=== PATIENT | female | born 1955 | race Caucasian/White ===

== ENCOUNTER 2021-10-15 00:17 | Emergency (ER) | payer MEDICARE, SELFPAY ==
[2021-10-15 00:28] VITALS: BP 168/67; PULSE 60; RESP 18; TEMP 36.7; O2SAT 99; BMI 23.3
[2021-10-15 00:30] VITALS: BP 168/67; PULSE 62; RESP 18; TEMP 36.7; O2SAT 99
--- NOTE | 2021-10-15 00:56 | ED.GENADULT ---
HPI - General Adult General Chief complaint: Upper Respiratory Symptoms Stated complaint: Tongue swollen Time Seen by Provider: 10/15/21 00:42 Source: patient Mode of arrival: Ambulatory History of Present Illness HPI narrative: Patient here for complaints of tongue swelling and dry mouth/tongue. Patient states this started around 10:00 p.m. tonight. 3 hours ago. No trouble breathing. No trouble swallowing. Patient speaking full sentences. Patient drinks some green tea that she made at home, it was older supply. Also had zinc. Patient states she had COVID like symptoms last week/Friday. Her son has COVID. She assumed that she had COVID as well. She has lost sense of taste and smell. Otherwise no new products in life. She does not want to take Benadryl because has paradoxical effect on her causing palpitations and feeling very energetic. She does not want to try prednisone as well. Patient speaking full sentences. In no distress. Denies any rash or itching Related Data Allergies Allergy/AdvReac Type Severity Reaction Status Date / Time amoxicillin Allergy Rash Verified 10/15/21 00:44 ciprofloxacin [From Cipro] Allergy Anaphylaxis Verified 10/15/21 00:44 erythromycin base Allergy Verified 10/15/21 00:44 Review of Systems Review of Systems Narrative: GENERAL: Denies chills, fatigue, malaise, fever, sweats. HEENT: Denies sinus pain, ear pain, sore throat, positive for tongue swelling RESPIRATORY: Denies dyspnea, cough CARDIOVASCULAR: Denies chest pain, palpitations GASTROINTESTINAL: Denies nausea, vomiting, abdominal pain : Denies dysuria, frequency, hematuria MUSCULOSKELETAL: denies muscle or bony pain SKIN: Denies rash, skin lesions NEUROLOGIC: Denies weakness, numbness ROS Unobtainable: All systems reviewed & are unremarkable except as noted in HPI and below Patient History Social History Smoking Status: Never smoker Smoking Status: Never smoker alcohol intake frequency: 0-2 drinks per day Substance Use Type: does not use Exam Narrative Exam Narrative: GENERAL: in no distress, not toxic not dyspneic HEAD: Normocephalic. EYES: Pupils equal round No scleral icterus. ENT: Mucous membranes moist. Tongue appears symmetric. No malocclusion or trismus. No tongue elevation. Normal appearing papule on the tongue. No lesions. Clear posterior pharynx without any edema or erythema. NECK: Trachea midline. No stridor CARDIOVASCULAR: Regular rate and rhythm without murmurs RESPIRATORY: Clear to auscultation. Breath sounds equal bilaterally. No wheezes, rales, or rhonchi. Speaking full sentences, no distress NEURO: AOx4. SKIN: Warm and dry PSYCH: Not anxious, is cooperative Initial Vital Signs Initial Vital Signs: Vital Signs Temperature 98.0 F 10/15/21 00:28 Pulse Rate 60 10/15/21 00:28 Respiratory Rate 18 10/15/21 00:28 Blood Pressure 168/67 H 10/15/21 00:28 Pulse Oximetry 99 10/15/21 00:28 Oxygen Delivery Method 10/15/21 00:28 Course Course Course Narrative: No new issues during course of stay Orders Ordered: ED Orders 10/15/21 01:11 COVID19 -Nasal RAPID/Pre-Proc Stat Reevaluation(s) Reevaluation #1: Patient states feeling better. No trouble breathing or swallowing. Patient states time does not feel swollen. She does recall using a Neti potty tonight. She thinks that may have triggered this sensation. Return precautions reviewed with her. Reviewed results with her. She understands there are myriad of symptoms and sequela from COVID. It is still being studied and reviewed. It including COVID tongue, however it is self-limiting. Time: 01:53 Vital Signs Vital signs: Vital Signs - 8 hr 10/15/21 00:30 10/15/21 00:28 Temperature 98.0 F 98.0 F Pulse Rate 62 60 Respiratory Rate 18 18 Blood Pressure 168/67 H Blood Pressure [Right Arm] 168/67 H Pulse Oximetry 99 99 Oxygen Delivery Method Room Air Room Air Medical Decision Making Differential Diagnosis Differential Diagnosis: COVID tongue/glossitis/geographic tongue Lab Data Labs: Lab Results 10/15/21 Range/Units 01:11 SARS-CoV-2 (PCR) Positive H (Negative) MDM Narrative Medical decision making narrative: Appropriate for discharge home. Exam reassuring. Symptoms likely related to COVID. Return precautions reviewed with patient. Not toxic at discharge. Feeling much better at time of discharge. Onset 4 hours ago, no tongue elevation or drooling or airway compromise Discharge Plan Departure Patient Disposition: Home Clinical Impression: COVID-19 Instructions: DI for COVID-19 (Suspected or Confirmed ) Activity Restrictions/Additional Instructions: Keep well hydrated. Return if worsening questions concerns. Must quarantine for 10 days from 1st day of your symptoms. Return if worse if any questions or concerns or for any trouble breathing or swallowing. Call 911 if having any trouble with breathing
[2021-10-15 01:39] LABS: COVID19 -Nasal RAPID POSITIVE (Negative)
[2021-10-15 01:59] VITALS: BP 137/74; PULSE 76; RESP 17; O2SAT 98
== END 2021-10-15 01:56 | disposition home or self-care (01) ==
PROVIDERS: Emergency Provider Emergency Medicine
DX: U07.1 COVID-19 (principal)
CPT/HCPCS: 87635; 99282; C9803

== ENCOUNTER 2023-06-03 15:15 | Outpatient (RCR) | payer MEDICARE, OTHER, SELFPAY ==
--- NOTE | 2023-05-07 17:03 | PT.OIE ---
Current Diagnoses Uterovaginal prolapse, unspecified (05/07/23) Pelvic muscle wasting (05/07/23) Visit Care Team Role Provider Type Stephan Camarena MD Family Provider Non-Staff Primary Care Provider Specialty: Internal Medicine Address: [address] [place] [address], [id number] Email: JAXSON Dyson Attending Provider Non-Staff Referring Provider Specialty: Family Practice Address: [address] [place] [address], [id number] Email: Physical Therapy Initial Evaluation PT-OP-A Visit Information Start: 05/07/23 08:10 Freq: Status: Active Protocol: Document 05/07/23 08:10 [facility] (Rec: 05/07/23 08:34 [facility] [id number]) Out-Patient Physical Therapy Visit Information Visit Information Visit Type Initial Evaluation Visit Start Time 08:15 Visit Stop Time 09:00 Visit Number 1 Evaluation Information Evaluation Date 05/07/23 PT-OP-B Current Condition Start: 05/07/23 08:10 Freq: Status: Active Protocol: Document 05/07/23 08:10 [facility] (Rec: 05/07/23 08:34 [facility] [id number]) Current Condition History of Current Condition Onset Date December 2022 Current Complaints urinary urgency History of Current Condition 67 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 In December she started noting hesitancy with voiding. She reports she is not a good water drinker. She drinks coffee in the am and then drinks 3 cups of hot tea per day. At [place] time she drove down to [facility] she was sitting in the car driving and that night she felt like she had a UTI. She was prescriped a antibiotic. It seemed to help some and then she drove to [facility] and symptoms worsened again. Then around New Years she felt the symptoms again of a infection. She was prescribed another antibiotic. She then went in for a test and it was negative for a UTI. She saw dr [place] and was given a pessary and estrogen cream for the past 3 weeks. The pessary does give her relief. She is taking it out 1 time every 2-3 days. She exercises every day. 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 She is mindful of her back . Arielle reports she lost her 3 years ago so she has not to the lifting on her own. No complaints of urinary leakage. Prior Treatments and Tests hx of 3 vaginal deliveries PT-OP-I Pelvic Floor Start: 05/07/23 08:10 Freq: Status: Active Protocol: Document 05/07/23 08:15 [facility] (Rec: 05/07/23 12:58 [facility] [id number]) Pelvic Floor Assessment Urine Pelvic Floor Surgery No Urinary Symptoms Incomplete Emptying,Falling Out Feeling/Heavy Other Urinary Symptoms decreased c/o urinary symptoms at this time as pt is now using a pessary, she was feeling incomplete emptying and bladder pressure prior to using the pessary, without the pessary those symptoms return . Arielle does note that it is easier for her to fully void in the am Pelvic Clock Pelvic Clock 12-3 Atrophy Pelvic Clock 3-6 Atrophy Pelvic Clock 6-9 Atrophy Pelvic Clock 9-12 Atrophy Prolapse Cystocele Grade 2 Prolapse Comments grade 2 vaginal vault prolapse Contraction Ability Voluntary Contraction Weak Voluntary Relaxation Weak Manual Muscle Testing Left 2 Manual Muscle Testing Right 2 Manual Muscle Testing Anterior 1 Manual Muscle Testing Posterior 2 Muscle Endurance (Seconds) 5 Comments Pelvic Floor Comments She is weakest in the anterior pelvic floor and lateral lopez PT-OP-Q Treatments Start: 05/07/23 08:10 Freq: Status: Active Protocol: Document 05/07/23 08:15 [facility] (Rec: 05/07/23 12:54 [facility] [id number]) Therapeutic Exercises Supine Exercises supine pelvic floor with bridge Reps/Minutes 3 x 10 reps pelvic floor long holds Reps/Minutes 10 reps holding 10 seconds and relaxing 10 seconds Comments with emg biofeedback average is 11.2 and max 52 PT-OP-T Assessment and Plan Start: 05/07/23 08:10 Freq: Status: Active Protocol: Document 05/07/23 08:10 [facility] (Rec: 05/07/23 08:34 [facility] [id number]) Physical Therapy Assessment Rehab Potential Rehabilitation Potential Excellent Evaluation Complexity Number of Personal Factors/Comorbidities 0 Number of Body Systems Impaired 1-2 Clinical Presentation at Evaluation Stable Impairments Impairments Activity Tolerance,Functional Activities,Pain,Soft Tissue Mobility,Strength Goals 2 Impairment Decreased pelvic floor endurance Short Term Goal (STG) Arielle is able to sustain a pelvic floor muscle contraction for 10 seconds in supine STG Duration 5 weeks Family Services Specialist Goal (LTG) Arielle is able to sustain a pelvic floor contraction for 5 seconds in standing LTG Duration 12 weeks 1 Impairment Decreased pelvic floor strength Short Term Goal (STG) Arielle is educated on a HEP for pelvic floor strengtheing STG Duration 5 weeks Family Services Specialist Goal (LTG) Arielle is able to increase her pelvic floor strength by at least 1 muscle grade for all lopez of her pelvic floor LTG Duration 12 weeks Assessment Summary Assessment Arielle is a 67 year old active female who presents to PT for pelvic floor strengthening due to vaginal vault prolapse as well as a cystocele. Arielle reports her symptoms began in December [address]. She described feeling as if she had a UTI. She was given antibiotics on two occasions to treat her symptoms. With further testing she was found to not have a UTI but presented with a vaginal vault prolapse and cystocele. Arielle was fit for a pessary and was given estrogen cream. She is feeling like both of these interventions are helping. With the pessary in she is not feeling the pelvic pressure she was experiencing . SHe does not that she has a slower urinary stream at the end of the day even with wearing the pessary. Arielle denies any urinary leakage. With pelvic floor exam Arielle presents with atrophic vaginal tissue weakness throughout her levator ani. She tests 1/5 MMT for the anterior wall, 2/5 MMT for lateral lopez, and 3/ 5 MMT for posterior wall. She lacks endurance of her pelvic floor. Arielle is a good candidate for pelvic floor PT working on improving strength and endurance of the pelvic floor to better support her pelvic organs. She lives alone at this time as she lost her 3 years ago. Pt notes she is very active in her yard and property and does do a lot of lifting. Treatment will also focus on body mechanics training for lifting to decrease downward strain to the bladder and vaginal lopez. Physical Therapy Plan Frequency and Duration Frequency of Treatment 1x/Week Duration of treatment (weeks) 12 Plan of Care Start Date 05/07/23 Plan of Care End Date 07/30/23 Therapeutic Interventions Therapeutic Interventions Home Exercise Program, Neuromuscular Re-education, Self-Care/Home Management, Therapeutic Exercises Modalities Biofeedback Next Visit Focus/Plan Next Note Type Treatment Note Next Visit Plan EMG biofeedback for endurance training of the pelvic floor, lateral hip strengthening exercises to help support the pelvic floor and pelvic organs , educated pt on using a wedge for pelvic decompression
--- NOTE | 2023-05-07 17:04 | PT.OPPOC ---
Physical, Occupational & Speech Therapy At [facility] Current Diagnoses Uterovaginal prolapse, unspecified (05/07/23) Pelvic muscle wasting (05/07/23) Visit Care Team Role Provider Type Stephan Camarena MD Family Provider Non-Staff Primary Care Provider Specialty: Internal Medicine Address: [address] [place] [address], [address] Email: JAXSON Dyson Attending Provider Non-Staff Referring Provider Specialty: Family Practice Address: [address] [place] [address], [id number] Email: Plan Of Care PT-OP-T Assessment and Plan Start: 05/07/23 08:10 Freq: Status: Active Protocol: Document 05/07/23 08:10 [facility] (Rec: 05/07/23 08:34 [facility] [id number]) Physical Therapy Assessment Rehab Potential Rehabilitation Potential Excellent Evaluation Complexity Number of Personal Factors/Comorbidities 0 Number of Body Systems Impaired 1-2 Clinical Presentation at Evaluation Stable Impairments Impairments Activity Tolerance,Functional Activities,Pain,Soft Tissue Mobility,Strength Goals 2 Impairment Decreased pelvic floor endurance Short Term Goal (STG) Arielle is able to sustain a pelvic floor muscle contraction for 10 seconds in supine STG Duration 5 weeks Half-Way Goal (LTG) Arielle is able to sustain a pelvic floor contraction for 5 seconds in standing LTG Duration 12 weeks 1 Impairment Decreased pelvic floor strength Short Term Goal (STG) Arielle is educated on a HEP for pelvic floor strengthening STG Duration 5 weeks Half-Way Goal (LTG) Arielle is able to increase her pelvic floor strength by at least 1 muscle grade for all lopez of her pelvic floor LTG Duration 12 weeks Assessment Summary Assessment Arielle is a 67 year old active female who presents to PT for pelvic floor strengthening due to vaginal vault prolapse as well as a cystocele. Arielle reports her symptoms began in December [address] drive. She described feeling as if she had a UTI. She was given antibiotics on two occasions to treat her symptoms. With further testing she was found to not have a UTI but presented with a vaginal vault prolapse and cystocele. Arielle was fit for a pessary and was given estrogen cream. She is feeling like both of these interventions are helping. With the pessary in she is not feeling the pelvic pressure she was experiencing . SHe does not that she has a slower urinary stream at the end of the day even with wearing the pessary. Arielle denies any urinary leakage. With pelvic floor exam Arielle presents with atrophic vaginal tissue weakness throughout her levator ani. She tests 1/5 MMT for the anterior wall, 2/5 MMT for lateral lopez, and 3/ 5 MMT for posterior wall. She lacks endurance of her pelvic floor. Arielle is a good candidate for pelvic floor PT working on improveing strength and endurance of the pelvic floor to better support her pelvic organs. She lives alone at this time as she lost her 3 years ago. Pt notes she is very active in her yard and property and does do a lot of lifting. Treatment will also focus on body mechanics training for lifting to decrease downward strain to the bladder and vaginal lopez. Physical Therapy Plan Frequency and Duration Frequency of Treatment 1x/Week Duration of treatment (weeks) 12 Plan of Care Start Date 05/07/23 Plan of Care End Date 07/30/23 Therapeutic Interventions Therapeutic Interventions Home Exercise Program, Neuromuscular Re-education, Self-Care/Home Management, Therapeutic Exercises Modalities Biofeedback Next Visit Focus/Plan Next Note Type Treatment Note Next Visit Plan EMG biofeedback for endurance training of the pelvic floor, lateral hip strengthening exercises to help support the pelvic floor and pelvic organs , educated pt on using a wedge for pelvic decompression Plan of Care Dates Plan of Care Start Date 05/07/23 Plan of Care End Date 07/30/23 Electronically Signed by: Krysten Hinton, PT 05/08/23 3063 If you are in agreement with this Plan of Care, please return a signed and dated copy. I have reviewed this Plan of Care and certify that the skilled therapy services above are required to meet the patient?s needs. Physician Signature Date Printed Name and Credentials Clinical Instructor Signature Printed Name and Credentials
--- NOTE | 2023-05-15 11:35 | PT.OTN ---
Current Diagnoses Uterovaginal prolapse, unspecified (05/15/23) Pelvic muscle wasting (05/15/23) Physical Therapy Treatment Note PT-OP-A Visit Information Start: 05/07/23 08:10 Freq: Status: Active Protocol: Document 05/15/23 09:48 [facility] (Rec: 05/15/23 10:31 [facility] [id number]) Out-Patient Physical Therapy Visit Information Visit Information Visit Type Treatment Note Visit Start Time 09:50 Visit Stop Time 10:30 Visit Number 2 PT-OP-B Current Condition Start: 05/07/23 08:10 Freq: Status: Active Protocol: Document 05/07/23 08:10 [facility] (Rec: 05/07/23 08:34 [facility] [id number]) Current Condition History of Current Condition Onset Date December 2022 Current Complaints urinary urgency History of Current Condition 67 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 In December she started noting hesitancy with voiding. She reports she is not a good water drinker. She drinks coffee in the am and then drinks 3 cups of hot tea per day. At [place] time she drove down to [facility] she was sitting in the car driving and that night she felt like she had a UTI. She was prescriped a antibiotic. It seemed to help some and then she drove to [facility] and symptoms worsened again. Then around New Years she felt the symptoms again of a infection. She was prescribed another antibiotic. She then went in for a test and it was negative for a UTI. She saw dr [place] and was given a pessary and estrogen cream for the past 3 weeks. The pessary does give her relief. She is taking it out 1 time every 2-3 days. She exercises every day. 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 She is mindful of her back . Arielle reports she lost her 3 years ago so she has not to the lifting on her own. No complaints of urinary leakage. Prior Treatments and Tests hx of 3 vaginal deliveries PT-OP-C Subjective Start: 05/07/23 08:10 Freq: Status: Active Protocol: Document 05/15/23 09:48 [facility] (Rec: 05/15/23 10:31 [facility] [id number]) OP-PT Subjective Patient Comments Patient Comments pt reports she worked on her exercises at home. She did keep her pessary in with her exercises PT-OP-I Pelvic Floor Start: 05/07/23 08:10 Freq: Status: Active Protocol: Document 05/07/23 08:15 [facility] (Rec: 05/07/23 12:58 [facility] [id number]) Pelvic Floor Assessment Urine Pelvic Floor Surgery No Urinary Symptoms Incomplete Emptying,Falling Out Feeling/Heavy Other Urinary Symptoms decreased c/o urinary symptoms at this time as pt is now using a pessary, she was feeling incomplete emptying and bladder pressure prior to using the pessary, without the pessary those symptoms return . Arielle does note that it is easier for her to fully void in the am Pelvic Clock Pelvic Clock 12-3 Atrophy Pelvic Clock 3-6 Atrophy Pelvic Clock 6-9 Atrophy Pelvic Clock 9-12 Atrophy Prolapse Cystocele Grade 2 Prolapse Comments grade 2 vaginal vault prolapse Contraction Ability Voluntary Contraction Weak Voluntary Relaxation Weak Manual Muscle Testing Left 2 Manual Muscle Testing Right 2 Manual Muscle Testing Anterior 1 Manual Muscle Testing Posterior 2 Muscle Endurance (Seconds) 5 Comments Pelvic Floor Comments She is weakest in the anterior pelvic floor and lateral lopez PT-OP-Q Treatments Start: 05/07/23 08:10 Freq: Status: Active Protocol: Document 05/15/23 09:48 [facility] (Rec: 05/15/23 10:31 [facility] [id number]) Therapeutic Exercises Supine Exercises pelvic floor quick contractions Reps/Minutes x 10 reps 2 sec on 2 sec off hip roll outs Equipment Used level 3 theraband Reps/Minutes 3 x 10 reps supine pelvic floor with bridge Reps/Minutes 3 x 10 reps pelvic floor long holds Reps/Minutes 10 reps holding 10 seconds and relaxing 10 seconds Comments average of 12.4 uv and max 48. 2 PT-OP-T Assessment and Plan Start: 05/07/23 08:10 Freq: Status: Active Protocol: Document 05/15/23 11:32 [facility] (Rec: 05/15/23 11:35 [facility] [id number]) Physical Therapy Assessment Rehab Potential Rehabilitation Potential Excellent Evaluation Complexity Number of Personal Factors/Comorbidities 0 Number of Body Systems Impaired 1-2 Clinical Presentation at Evaluation Stable Impairments Impairments Activity Tolerance,Functional Activities,Pain,Soft Tissue Mobility,Strength Goals 2 Impairment Decreased pelvic floor endurance Short Term Goal (STG) Arielle is able to sustain a pelvic floor muscle contraction for 10 seconds in supine STG Duration 5 weeks Long-Term Goal (LTG) Arielle is able to sustain a pelvic floor contraction for 5 seconds in standing LTG Duration 12 weeks 1 Impairment Decreased pelvic floor strength Short Term Goal (STG) Arielle is educated on a HEP for pelvic floor strengtheing STG Duration 5 weeks Long-Term Goal (LTG) Arielle is able to increase her pelvic floor strength by at least 1 muscle grade for all lopez of her pelvic floor LTG Duration 12 weeks Assessment Summary Assessment Arielle did show improvements with pelvic floor recruitment today on EMG biofeedback. It is difficult for her to sustain a contraction and endurance training will be very beneficial to her. She tolerated the addition of lateral hip strength and quick contractions well today Physical Therapy Plan Frequency and Duration Frequency of Treatment 1x/Week Duration of treatment (weeks) 12 Plan of Care Start Date 05/07/23 Plan of Care End Date 07/30/23 Therapeutic Interventions Therapeutic Interventions Home Exercise Program, Neuromuscular Re-education, Self-Care/Home Management, Therapeutic Exercises Modalities Biofeedback Next Visit Focus/Plan Next Note Type Treatment Note Next Visit Plan EMG biofeedback for endurance training of the pelvic floor, lateral hip strengthening exercises to help support the pelvic floor and pelvic organs , educated pt on using a wedge for pelvic decompression
--- NOTE | 2023-05-29 12:11 | PT.OTN ---
Current Diagnoses Uterovaginal prolapse, unspecified (05/29/23) Pelvic muscle wasting (05/29/23) Physical Therapy Treatment Note PT-OP-A Visit Information Start: 05/07/23 08:10 Freq: Status: Active Protocol: Document 05/29/23 11:20 [facility] (Rec: 05/29/23 12:09 [facility] [id number]) Out-Patient Physical Therapy Visit Information Visit Information Visit Type Treatment Note Visit Start Time 11:20 Visit Stop Time 12:00 Visit Number 3 PT-OP-B Current Condition Start: 05/07/23 08:10 Freq: Status: Active Protocol: Document 05/07/23 08:10 [facility] (Rec: 05/07/23 08:34 [facility] [id number]) Current Condition History of Current Condition Onset Date December 2022 Current Complaints urinary urgency History of Current Condition 67 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 In December she started noting hesitancy with voiding. She reports she is not a good water drinker. She drinks coffee in the am and then drinks 3 cups of hot tea per day. At [place] time she drove down to [facility] she was sitting in the car driving and that night she felt like she had a UTI. She was prescriped a antibiotic. It seemed to help some and then she drove to [facility] and symptoms worsened again. Then around New Years she felt the symptoms again of a infection. She was prescribed another antibiotic. She then went in for a test and it was negative for a UTI. She saw dr [place] and was given a pessary and estrogen cream for the past 3 weeks. The pessary does give her relief. She is taking it out 1 time every 2-3 days. She exercises every day. 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 She is mindful of her back . Arielle reports she lost her 3 years ago so she has not to the lifting on her own. No complaints of urinary leakage. Prior Treatments and Tests hx of 3 vaginal deliveries PT-OP-C Subjective Start: 05/07/23 08:10 Freq: Status: Active Protocol: Document 05/29/23 12:10 [facility] (Rec: 05/29/23 12:11 [facility] [id number]) OP-PT Subjective Patient Comments Patient Comments Arielle notes she can still feel pelvic pressure at times Patient Reported Progress Same PT-OP-I Pelvic Floor Start: 05/07/23 08:10 Freq: Status: Active Protocol: Document 05/07/23 08:15 [facility] (Rec: 05/07/23 12:58 [facility] [id number]) Pelvic Floor Assessment Urine Pelvic Floor Surgery No Urinary Symptoms Incomplete Emptying,Falling Out Feeling/Heavy Other Urinary Symptoms decreased c/o urinary symptoms at this time as pt is now using a pessary, she was feeling incomplete emptying and bladder pressure prior to using the pessary, without the pessary those symptoms return . Arielle does note that it is easier for her to fully void in the am Pelvic Clock Pelvic Clock 12-3 Atrophy Pelvic Clock 3-6 Atrophy Pelvic Clock 6-9 Atrophy Pelvic Clock 9-12 Atrophy Prolapse Cystocele Grade 2 Prolapse Comments grade 2 vaginal vault prolapse Contraction Ability Voluntary Contraction Weak Voluntary Relaxation Weak Manual Muscle Testing Left 2 Manual Muscle Testing Right 2 Manual Muscle Testing Anterior 1 Manual Muscle Testing Posterior 2 Muscle Endurance (Seconds) 5 Comments Pelvic Floor Comments She is weakest in the anterior pelvic floor and lateral lopez PT-OP-Q Treatments Start: 05/07/23 08:10 Freq: Status: Active Protocol: Document 05/29/23 11:20 [facility] (Rec: 05/29/23 12:09 [facility] [id number]) Therapeutic Exercises Supine Exercises templates for eccentric control and coordination Supine Exercise Name with EMG biofeedback Reps/Minutes x 8 min pelvic floor quick contractions Reps/Minutes x 10 reps 2 sec on 2 sec off hip roll outs Reps/Minutes 3x 10 with resistance Comments clam shells supine pelvic floor with bridge Reps/Minutes 3 x 10 reps pelvic floor long holds Reps/Minutes 10 reps holding 10 seconds and relaxing 10 seconds Comments 10.5 average and max of 25.2 Self-Care/Home Management Treatment Education Patient Education Home Exercise Program PT-OP-T Assessment and Plan Start: 05/07/23 08:10 Freq: Status: Active Protocol: Document 05/29/23 11:20 [facility] (Rec: 05/29/23 12:09 [facility] [id number]) Physical Therapy Assessment Goals 2 Impairment Decreased pelvic floor endurance Short Term Goal (STG) Arielle is able to sustain a pelvic floor muscle contraction for 10 seconds in supine STG Duration 5 weeks [employer]board [employer] Room Operator Goal (LTG) Arielle is able to sustain a pelvic floor contraction for 5 seconds in standing LTG Duration 12 weeks 1 Impairment Decreased pelvic floor strength Short Term Goal (STG) Arielle is educated on a HEP for pelvic floor strengtheing STG Duration 5 weeks Switchboard And Control Room Operator Goal (LTG) Arielle is able to increase her pelvic floor strength by at least 1 muscle grade for all lopez of her pelvic floor LTG Duration 12 weeks Assessment Summary Assessment Arielle is showing progress with improved endurance of the pelvic floor, she would benefit from working towards upright strengthening Physical Therapy Plan Frequency and Duration Frequency of Treatment 1x/Week Duration of treatment (weeks) 12 Plan of Care Start Date 05/07/23 Plan of Care End Date 07/30/23 Therapeutic Interventions Therapeutic Interventions Home Exercise Program, Neuromuscular Re-education, Self-Care/Home Management, Therapeutic Exercises Modalities Biofeedback Next Visit Focus/Plan Next Note Type Treatment Note Next Visit Plan EMG biofeedback for endurance training of the pelvic floor, lateral hip strengthening exercises, begin standing pelvic floor ex
--- NOTE | 2023-06-03 16:43 | PT.OTN ---
Current Diagnoses Uterovaginal prolapse, unspecified (06/03/23) Pelvic muscle wasting (06/03/23) Physical Therapy Treatment Note PT-OP-A Visit Information Start: 05/07/23 08:10 Freq: Status: Active Protocol: Document 06/03/23 15:19 [facility] (Rec: 06/03/23 16:13 [facility] [id number]) Out-Patient Physical Therapy Visit Information Visit Information Visit Type Treatment Note Visit Start Time 15:15 Visit Stop Time 16:00 Visit Number 4 PT-OP-B Current Condition Start: 05/07/23 08:10 Freq: Status: Active Protocol: Document 05/07/23 08:10 [facility] (Rec: 05/07/23 08:34 [facility] [id number]) Current Condition History of Current Condition Onset Date December 2022 Current Complaints urinary urgency History of Current Condition 67 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 In December she started noting hesitancy with voiding. She reports she is not a good water drinker. She drinks coffee in the am and then drinks 3 cups of hot tea per day. At [place] time she drove down to [facility] [facility] she was sitting in the car driving and that night she felt like she had a UTI. She was prescriped a antibiotic. It seemed to help some and then she drove to [facility] and symptoms worsened again. Then around New Years she felt the symptoms again of a infection. She was prescribed another antibiotic. She then went in for a test and it was negative for a UTI. She saw dr [place] and was given a pessary and estrogen cream for the past 3 weeks. The pessary does give her relief. She is taking it out 1 time every 2-3 days. She exercises every day. 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 She is mindful of her back . Arielle reports she lost her 3 years ago so she has not to the lifting on her own. No complaints of urinary leakage. Prior Treatments and Tests hx of 3 vaginal deliveries PT-OP-C Subjective Start: 05/07/23 08:10 Freq: Status: Active Protocol: Document 06/03/23 15:19 [facility] (Rec: 06/03/23 16:13 [facility] [id number]) OP-PT Subjective Patient Comments Patient Comments Arielle notes that she is not noting the pelvic pressure as much as she is feeling good with her home exercise program Patient Reported Progress Improving PT-OP-I Pelvic Floor Start: 05/07/23 08:10 Freq: Status: Active Protocol: Document 05/07/23 08:15 [facility] (Rec: 05/07/23 12:58 [facility] [id number]) Pelvic Floor Assessment Urine Pelvic Floor Surgery No Urinary Symptoms Incomplete Emptying,Falling Out Feeling/Heavy Other Urinary Symptoms decreased c/o urinary symptoms at this time as pt is now using a pessary, she was feeling incomplete emptying and bladder pressure prior to using the pessary, without the pessary those symptoms return . Arielle does note that it is easier for her to fully void in the am Pelvic Clock Pelvic Clock 12-3 Atrophy Pelvic Clock 3-6 Atrophy Pelvic Clock 6-9 Atrophy Pelvic Clock 9-12 Atrophy Prolapse Cystocele Grade 2 Prolapse Comments grade 2 vaginal vault prolapse Contraction Ability Voluntary Contraction Weak Voluntary Relaxation Weak Manual Muscle Testing Left 2 Manual Muscle Testing Right 2 Manual Muscle Testing Anterior 1 Manual Muscle Testing Posterior 2 Muscle Endurance (Seconds) 5 Comments Pelvic Floor Comments She is weakest in the anterior pelvic floor and lateral lopez PT-OP-Q Treatments Start: 05/07/23 08:10 Freq: Status: Active Protocol: Document 06/03/23 15:19 [facility] (Rec: 06/03/23 16:13 [facility] [id number]) Therapeutic Exercises Supine Exercises templates for eccentric control and coordination Supine Exercise Name with EMG biofeedback Reps/Minutes x 8 min pelvic floor quick contractions Reps/Minutes x 10 reps 2 sec on 2 sec off supine pelvic floor with bridge Reps/Minutes 3 x 10 reps pelvic floor long holds Reps/Minutes 10 reps holding 10 seconds and relaxing 10 seconds Comments 13.5 average and max 32.7 max Sidelying Exercises clam shells Reps/Minutes 3x10 reps each side Other Exercises sit-stand Other Exercise Name pt educated on pelvic floor brace prior to stand Comments with pelvic floor muscle control Self-Care/Home Management Treatment Education Patient Education Home Exercise Program Other Education pt was given pictures of her HEP and it was updated to include sit-stand and elevator exercise PT-OP-T Assessment and Plan Start: 05/07/23 08:10 Freq: Status: Active Protocol: Document 06/03/23 15:19 [facility] (Rec: 06/03/23 16:13 [facility] [id number]) Physical Therapy Assessment Goals 2 Impairment Decreased pelvic floor endurance Short Term Goal (STG) Arielle is able to sustain a pelvic floor muscle contraction for 10 seconds in supine goal met STG Duration 5 weeks Fpc Goal (LTG) Arielle is able to sustain a pelvic floor contraction for 5 seconds in standing Arielle is working on pelvic floor bracing with sit-stand and with standing LTG Duration 12 weeks 1 Impairment Decreased pelvic floor strength Short Term Goal (STG) Arielle is educated on a HEP for pelvic floor strengtheing goal met STG Duration 5 weeks Fpc Goal (LTG) Arielle is able to increase her pelvic floor strength by at least 1 muscle grade for all lopez of her pelvic floor excellent progress LTG Duration 12 weeks Assessment Summary Assessment Arielle is showing a good understanding of her home program for pelvic floor endurance and strength training. She has shown a good increase in strength with EMG biofeedback and endurance is improved. She is not feeling as much of the pelvic pressure. I have encouraged Arielle to continue with her exercises. She will be discharged from PT at this time. Physical Therapy Plan Discharge Physical Therapy Discharge Reasons Goals Met Discharge Comments pt is independent with her HEP and will be discharged at this time
== END 2023-06-09 10:14 | disposition home or self-care (01) ==
LOC: PHYS 15:15
PROVIDERS: Family Provider Internal Medicine; PCP Internal Medicine; Referring Provider Nurse Practitioner Family; Visit Provider Nurse Practitioner Family
DX: N81.4 Uterovaginal prolapse, unspecified (principal); N81.84 Pelvic muscle wasting
CPT/HCPCS: 97110; 97162; 97535

== ENCOUNTER → 2025-03-02 13:10 | Outpatient (CLI) | payer MEDICARE, SELFPAY ==
[2025-03-03 12:36] LABS: Trichomoas vaginalis Negative (Negative)
== END ==
LOC: LAB 13:11
PROVIDERS: Family Provider Internal Medicine; PCP Internal Medicine; Visit Provider Student in an Organized Health Care Education/Training Program
DX: N89.8 Other specified noninflammatory disorders of vagina (principal)
CPT/HCPCS: 81514